=== PATIENT | male | born 1995 | race American Indian/Alaskan Native ===

== ENCOUNTER 2017-05-30 18:00 | Emergency (ER) | payer OTHER ==
[2017-05-30] MEDS ORDERED: DUONEB *Not for PRN Use IH ONE (20:29)
[2017-05-30] MEDS ORDERED: DELTASONE PO ONE (20:30)
--- NOTE | 2017-05-30 20:30 | Emergency Department Report ---
ED Asthma HPI - General Chief Complaint: Adult Asthma Stated Complaint: STEVAN Time Seen by Provider: 05/30/17 20:22 Source: patient Mode of arrival: Ambulatory Limitations: No Limitations - History of Present Illness Initial Comments: 21-year-old male past medical history asthma presents with complaint of shortness of breath since this afternoon. Patient is awake alert and oriented 3. No audible wheezing or stridor. Speaking in full sentences. States he has had slightly sore throat since afternoon as well. Denies nausea vomiting fever or chills. Denies body aches. Denies smoking. States he has not had an asthma exacerbation in several years. Denies any chest pain at this time. No trismus or drooling on exam. MD Complaint: "asthma attack", other (sore throat) -: This afternoon Asthma History: childhood onset Associated Symptoms: none Treatments Prior to Arrival: inhaled bronchodilator - Related Data Current Asthma Therapy: none Previous Rx's Medication Instructions Recorded Last Taken Type Albuterol Sulfate [Ventolin Hfa] 1 puff IH Q4H PRN #1 hfa.aer.ad 05/30/17 Unknown Rx Amoxicillin [Trimox CAP] 500 mg PO Q8H #30 capsule 05/30/17 Unknown Rx Dextromethorphan/Benzocaine 1 each PO Q4H PRN #1 pack 05/30/17 Unknown Rx [Cepacol Sorethroat-Cough [place]] predniSONE [Deltasone] 20 mg PO QDAY #10 tab 05/30/17 Unknown Rx Allergies Allergy/AdvReac Type Severity Reaction Status Date / Time No Known Allergies Allergy Unverified 05/30/17 18:19 ED Review of Systems ROS: Stated complaint: STEVAN Other details as noted in HPI Constitutional: denies: chills, fever Eyes: denies: eye pain, eye discharge, vision change ENT: throat pain. denies: ear pain Respiratory: cough. denies: shortness of breath, wheezing Cardiovascular: denies: chest pain, palpitations Endocrine: no symptoms reported Gastrointestinal: denies: abdominal pain, nausea, diarrhea Genitourinary: denies: urgency, dysuria Musculoskeletal: denies: back pain, joint swelling, arthralgia Skin: denies: rash, lesions Neurological: denies: headache, weakness, paresthesias Psychiatric: denies: anxiety, depression Hematological/Lymphatic: denies: easy bleeding, easy bruising ED Past Medical Hx - Past Medical History Previous Medical History?: Yes Hx Asthma: Yes - Surgical History Past Surgical History?: Yes Additional Surgical History: Testicle surgery - Social History Smoking Status: Former Smoker Substance Use Type: Marijuana - Medications Home Medications: Home Medications Medication Instructions Recorded Confirmed Last Taken Type Albuterol Sulfate [Ventolin Hfa] 1 puff IH Q4H PRN #1 hfa.aer.ad 05/30/17 Unknown Rx Amoxicillin [Trimox CAP] 500 mg PO Q8H #30 capsule 05/30/17 Unknown Rx Dextromethorphan/Benzocaine 1 each PO Q4H PRN #1 pack 05/30/17 Unknown Rx [Cepacol Sorethroat-Cough [place]] predniSONE [Deltasone] 20 mg PO QDAY #10 tab 05/30/17 Unknown Rx ED Physical Exam - General Limitations: No Limitations General appearance: alert, in no apparent distress - Head Head exam: Present: atraumatic, normocephalic - Eye Eye exam: Present: normal appearance, PERRL, EOMI - ENT ENT exam: Present: mucous membranes moist - Expanded ENT Exam Expanded Throat exam: Positive: tonsillar erythema (patient does have some tonsillar erythema no overt exudates. Uvula is midline no peritonsillar abscess) - Neck Neck exam: Present: normal inspection - Respiratory Respiratory exam: Present: normal lung sounds bilaterally (slight fine wheezing bilateral woo). Absent: respiratory distress - Cardiovascular Cardiovascular Exam: Present: regular rate, normal rhythm. Absent: systolic murmur, diastolic murmur, rubs, gallop - GI/Abdominal GI/Abdominal exam: Present: soft, normal bowel sounds - Rectal Rectal exam: Present: deferred - Extremities Exam Extremities exam: Present: normal inspection - Back Exam Back exam: Present: normal inspection - Neurological Exam Neurological exam: Present: alert, oriented X3 - Psychiatric Psychiatric exam: Present: normal affect, normal mood - Skin Skin exam: Present: warm, dry, intact, normal color. Absent: rash ED Course Vital Signs 05/30/17 05/30/17 18:19 22:00 Temperature 98.5 F Pulse Rate 73 70 Respiratory 20 18 Rate Blood Pressure 125/83 Blood Pressure 118/82 [Left] O2 Sat by Pulse 98 99 Oximetry ED Medical Decision Making - Medical Decision Making Asthma exacerbation, reactive airway disease, pharyngitis 1-refill albuterol inhaler 2-short course prednisone, throat lozenges 3-normal vital signs, patient does not have any audible wheezing or stridor or retractions before discharge. tolerating PO without difficulty 4- vital signs stable, strep swab negative 5- patient to follow up with primary care doctor or software release engineer Critical care attestation.: If time is entered above; I have spent that time in minutes in the direct care of this critically ill patient, excluding procedure time. ED Disposition Clinical Impression: Sore throat Asthma exacerbation Qualifiers: Asthma severity: mild Asthma persistence: intermittent Qualified Code(s): J45.21 - Mild intermittent asthma with (acute) exacerbation Disposition: TO HOME OR SELFCARE Is pt being admited?: No Does the pt Need Aspirin: No Condition: Stable Instructions: Asthma (ED), Pharyngitis (ED) Prescriptions: Albuterol Sulfate [Ventolin Hfa] 1 puff IH Q4H PRN #1 hfa.aer.ad PRN Reason: Wheezing Amoxicillin [Trimox CAP] 500 mg PO Q8H #30 capsule Dextromethorphan/Benzocaine [Cepacol Sorethroat-Cough [place]] 1 each PO Q4H PRN #1 pack PRN Reason: Sore Throat predniSONE [Deltasone] 20 mg PO QDAY #10 tab Referrals: RICHARD GUILLERMO MD [Primary Care Provider] - 3-5 Days [facility] [Outside] - 3-5 Days [facility] [place]Note 3] [Outside] - 3-5 Days Time of Disposition: 21:54
[2017-05-30 22:01] VITALS: BP 118/82
== END 2017-05-30 22:05 | disposition home or self-care (01) ==
LOC: ED 18:00
DX: J45.21 Mild intermittent asthma with (acute) exacerbation (principal); J02.9 Acute pharyngitis, unspecified; F12.10 Cannabis abuse, uncomplicated
CPT/HCPCS: 87116; 87430; 94644; 99283; J7512